=== PATIENT | male | born 1945 | race Caucasian/White ===

== ENCOUNTER 2017-07-27 09:10 | Inpatient (IN) | payer MEDICARE, OTHER, SELFPAY ==
[2017-07-13 09:29] VITALS: BP 142/90; PULSE 68; RESP 16; TEMP 36.3; O2SAT 98; BMI 26.5
[2017-07-13 10:10] LABS: Absolute Lymphocyte Count 1.61 X10^3/ul (0.83-4.51); Absolute Neutrophil Count 4.8 X10^3/uL (2.0-7.7); Basophil# 0.04 X10^3/uL; Basophil% 0.5 % (0-1); Eosinophil# 0.48 X10^3/uL; Eosinophils% 6.3 % (0-5); Hematocrit 48.8 % (40-54); Hemoglobin 16.5 g/dl (13.0-16.5); Lymphocyte # 1.61 X10^3/ul (4.0); Lymphocyte % 21.1 % (19-41); Mean Corp Hgb Conc 33.8 g/gl (32-36); Mean Corpuscular Hgb 29.8 pg (27.0-32.0); Mean Corpuscular Volume 88.2 fL (80-94); Mean Platelet Vol. 9.6 fl (6.2-12.0); Monocyte# 0.63 X10^3/uL; Monocyte% 8.3 % (0-10); Neutrophil # 4.84 X10^3/uL (2.7-7.7); Neutrophil % 63.5 % (47-70); Platelet Count 255 K/mm3 (150-450); RBC Distribution Width CV 12.8 % (11.6-14.6); RBC Distribution Width SD 41.4 fl (35.1-43.9); Red Blood Count 5.53 M/mm3 (4.6-6.2); White Blood Count 7.6 K/mm3 (4.4-11.0)
[2017-07-13 10:12] LABS: POSITIVE COUNT NO; POSITIVE DIFFERENTIAL NO; POSITIVE MORPHOLOGY NO
[2017-07-13 10:52] LABS: Anion Gap 8 (5-15); BUN 16 mg/dL (7-18); BUN/Creat Ratio 17.4 RATIO (10-20); Calcium,Total 9.1 mg/dL (8.5-10.1); Chloride 103 mmol/L (98-107); Creatinine, Serum 0.92 mg/dL (0.70-1.30); EST Glomerular Filtration Rate 85 mL/min (>60); Est Glom Filt Rate - Afr Amer 103 mL/min (>60); Estimated Creatinine Clearance 73.84 ml/min; Glucose 88 mg/dL (74-106); Potassium 4.3 mmol/L (3.5-5.1); Sodium Level 139 mmol/L (136-145)
--- NOTE | 2017-07-14 13:59 | PCM.HP.BLA ---
History and Physical DATE OF SERVICE: 07/27/2017 SCHEDULED PROCEDURE: Left total knee arthroplasty HISTORY OF PRESENT ILLNESS: This is a 71-year-old male who is been having ongoing pain in bilateral knees for several years. The left knee is greater than the right. Patient states he has been having pain since . Pain is aching and sore. Pain can reach as high as a 4-5 out of 10. Pain is increased with going up and down stairs, prolonged walking, and sitting for extended periods of time. Patient does have start up pain. Pain is primarily located over the medial aspect of the left knee. Patient has difficult time with leisure activities such as golf due to the pain. He has tripped and stumbled secondary to his bilateral knee pain. Patient has tried conservative treatment measures consisting of oral medications including ibuprofen and supplements. He has tried bracing with no relief in symptoms. Patient has tried ice and heat with no relief in symptoms. X-rays have revealed severe osteoarthritis with varus deformity on the left knee. After failing conservative treatment measures and discussing all treatment options with Dr. Scott, the patient would like to proceed with a left total knee arthroplasty. He currently denies any chest pain, shortness of breath, fevers chills, or recent infections. Patient does have medical history pertinent for history of gout and previous bladder cancer that is in remission he does have some underlying prostate problems he has been dealing with his primary care physician. REVIEW OF SYSTEMS: ROS: Const: Reports hard of hearingDenies change in appetite, fever,or weight change. CV: Denies chest pain, heart murmur and irregular heartbeat. Resp: Denies cough, pneumonia, SOB, tuberculosis and wheezing. GI: Denies constipation, diarrhea, difficulty swallowing, heartburn, nausea, bloody stools and vomiting. : . (F Genital Sx) Urinary: denies incontinence. Musculo: Reports limp, but denies leg swelling, trouble walking and weakness. Skin: Denies Raynaud's, history of shingles and tattoo. Neuro: Denies ambulatory dysfunction, dizziness, numbness/tingling and tremor. Psych: Denies anxiety, insomnia and stress. Red/Lymph: Denies anemia, bleeding/bruising tendency and past transfusion. Reviewed, no changes. PAST MEDICAL HISTORY: Advance Care Plan: Other Directive, LIVING WILL Effective Date: 03/14/2017 Other Directive, POA Effective Date: 03/14/2017 PMH: Medical Problems: Cancer, Gout Accidents: None Surgical Hx: Bladder - (2017) Anesthesia Complications: None Assistive Devices: Hearing Aid Reviewed, no changes. SOCIAL HISTORY: SH: Marital: .Occupation: Retired.Work Status: Retired.Hand Dominance: Right-handed. Personal Habits: Cigarette Use: Former.Alcohol: Weekly use.Drug Use: Denies Use.Enjoy Exercising: Never Exercises. Reviewed, no changes. VITALS: Ht: 70 Wt: 180lb Wt k.648 BMI: 25.8 BP: 112/88 Pulse: 60 Resp: 16 T: 97.2 T: 36.2C ALLERGIES: No Known Drug Allergy MEDICATIONS: Pravastatin Sodium 20 mg daily, GNC Tri Flex 1po qday, Honey & Raw Vinger 2 tablespoons in alexander, Hutson Juice 1 drink daily PRE-OP EXAM: General appearance:NORMAL Other: Eyes: Conjunctivae and lids: NORMAL Pupils: ERR Ears, Nose, Mouth, and Throat: NORMAL Other: Inspection of lips, teeth and gums: NORMAL Other: Neck: Examination of neck: no masses noted. Respiratory: Assessment of respiratory effort: NORMAL Other: Ausculation of lungs: clear to ausculation no wheeses, ronchi or rales. Cardiovascular: Ausculation of heart: regular rate and rhythem, no mummurs, gallops or rubs. Exam of carotid arteries: NORMAL Other: Gastrointestinal: Exam of abdomen: soft, nontender, nondistended bowel sounds present. Lymphatic: Palpation of nodes in neck: NORMAL Other: Palpation of nodes in Axillae: NORMAL Other: Neurological: see below Psychiatric: Orientation to time, place and person: NORMAL Other: Mood and affect: NORMAL Other: PHYSICAL EXAMINATION: Patient walks with an antalgic gait. No significant effusion to the left knee. Range of motion is 0? of extension 215? of flexion with crepitus appreciated. Patient does have a varus deformity. Patient is stable to varus and valgus stress test. Sensations intact light touch. IMAGING STUDIES: 1. X-rays were obtained at [facility] on March 17, 2017 including bilateral knees which reveal varus alignment and medial joint space narrowing with subchondral sclerosis and osteophyte formation consistent with severe left and moderate right knee osteoarthritis. IMPRESSION: 1. Severe left knee osteoarthritis 2. Moderate right knee osteoarthritis 3. History of gout 4. History of bladder cancer in remission 5. Prostate PLAN: Dr. Scott did discuss and review with the patient all treatment options including surgical versus nonsurgical. Patient wishes to proceed with above-stated procedure. Potential risks, benefits, and complications of this procedure were discussed in detail including but not limited to , infection, nerve and blood vessel damage, persistent pain, numbness, tingling, paresthesias, blood clot, pulmonary embolism, and requirement for further surgery. The patient expressed full understanding has no further questions for the doctor. Patient does agree to proceed with the above-stated procedure and has signed the surgery consent form. We will undergo preoperative lab work and EKG. ___ I have re-examined the patient. There are no clinical changes since date of exam. ___ See progress notes for changes. ___ Dictated on admission Date: Time: Signature:
[2017-07-27] VITALS (11 sets, daily range): BP systolic 109–159; BP diastolic 72–92; PULSE 72–103; RESP 16–18; TEMP 36.1–36.5; O2SAT 93–99; BMI 26.5
[2017-07-27] MEDS: Acetaminophen 500 MG Tablet 1000 MG PO ×3 (06:34→21:40)
[2017-07-27] MEDS: Celecoxib 200 MG Capsule 400 MG PO (06:34)
[2017-07-27] MEDS: oxyCODONE HCl Cr 10 MG Tablet PO (06:34)
--- NOTE | 2017-07-27 07:01 | RAD_ITS ---
STUDY: X-RAY - LEFT KNEE REASON FOR EXAM: Male, 71 years old. Total knee replacement. TECHNIQUE: AP and lateral view(s) of the knee. COMPARISON: None. FINDINGS: Normal visualized distal femur. Normal visualized proximal tibia and fibula. Normal proximal tibiofibular articulation. The patient is status post total knee replacement. There is good alignment. Postoperative soft tissue changes. RAD/Knee 1 or 2 Views IMPRESSION: Status post total knee replacement. There is good alignment. Postoperative soft tissue changes. Electronically Signed: Carlos Alexandra MD at 11:18 EST Tel [phone], Service support ,
[2017-07-27] MEDS: Cefazolin 2 GM in 0.9% Normal Saline 100 ML IV (07:37)
[2017-07-27] MEDS: Lactated Ringers 1,000 ML 999 ML IV (07:45)
[2017-07-27] MEDS: Triamcinolone Acetonide 40 MG/ML Vial (07:46)
[2017-07-27] MEDS: Scopolamine 1mg/72hr Patch 1 PATCH TD (10:12)
[2017-07-27] MEDS: Lactated Ringers 1,000 ML 125 ML IV ×2 (11:10→19:23)
--- NOTE | 2017-07-27 11:22 | PCM.OPRPT ---
Report of Operation Date of Procedure: 07/27/17 Pre-Operative Diagnosis: Left knee primary osteoarthritis Post-Operative Diagnosis: Left knee primary osteoarthritis Surgery/Procedure Performed:: Left total knee replacement Description of Surgical Findings:: Stable knee with good patella tracking welt slasher: Radha Matthews Type of Anesthesia:: Spinal Anesthesiologist: Blane Osullivan Special Medications: 2 g Ancef, 1 g TXA at incision, 1 g TXA closure, 10 mg Decadron, joint cocktail (5 mg Duramorph, 30 mL of 0.5% Ropivicaine, 1000 units of epinephrine, 30 mg of Toradol) Specimen's removed: Bony cuts Estimated Blood Loss (mL): 25 Fluids Replaced: 1200 mL crystalloid Description of Procedure: Implants used: 1. [place]aire size 7 triathlon posterior stabilized distal femoral component 2. [place] size 7 universal tibial baseplate 3. [place] X3 9 mm CS polyethylene 4. [place] X3 38 mm asymmetric patella Brief history operative indications: 71-year-old m with history of left knee osteoarthritis with radiographic findings with loss of joint space, osteophyte formation and subchondral sclerosis. Failed conservative measures as mentioned in the H&P. Discussion of total knee arthroplasty as well as risk and benefits were discussed the patient including but not limited to blood loss, DVTs, PEs, neurovascular damage, general risk of anesthesia including loss of life, and stiffness or instability were discussed with patient. Patient demonstrated understanding and was able to sign informed consent. Procedure: On the date of procedure patient's left lower extremity was marked in the preoperative area. The patient was then taken back to the operating room where the patient was placed on the table in the supine position. All bony prominences were identified a well-padded. Anesthesia assumed control of the C-spine and airway and remained controlled throughout the remainder of the procedure. A tourniquet was placed on the left upper thigh and the leg was prepped in a sterile fashion. The surgeon then scrubbed at this time .Upon reentering the room left lower extremity was draped in a standard orthopedic fashion. A timeout was then called and everyone agreed upon the side, the site, the procedure to be performed, patient's identity and antibiotics given. Esmarch bandage was used to exsanguinate the extremity and the tourniquet was placed up to 250 mmHg with the knee in flexion. A midline skin incision was made and sharp dissection was taken down through skin subcutaneous tissue and fat. The standard medial parapatellar incision was made and the patella was subluxed laterally. The standard deep MCL release was done and the fat pad was resected. Next our attention was directed to the femur. Navigation pins were placed, navigation was registered. The distal femoral cutting block was pinned into place and 9 mm of distal femur resection was completed. The distal femoral cut was verified with navigation. The knee was then placed in deep flexion in the standard Ideapod sizing guide was used to place the femoral component in 3? external rotation based on the posterior condyles. A size 7 4-in-1 cutting block was selected and pinned into place. The anterior cut was then made and checked for notching. The subsequent anterior chamfer cuts, posterior condylar cuts and posterior chamfer cuts were made while ensuring the MCL and LCL were protected. Our attention was then turned to the tibia where the navigation pins were placed, navigation was registered. Cloopen tibial cutting guide was used to make the appropriate tibial cut 90 degrees from the mechanical axis. Navigation was then used to verify the cut. A size 7 tibial base plate was selected. the knee was flexed to 90 degrees and the soft tissues and posterior osteophytes were removed from the joint. 40 cc of the periarticular injection was injected into the posterior medial corner of the joint. Box cutting guide was put into place in the femoral box cut was made. The appropriate trials were then placed on the femur and tibia. A trial polyethylene was trialed to ensure proper balancing and stability of the knee. Patella tracking, was then verified and corrected appropriately as needed. The appropriate tibial internal rotation was then marked with a bovie. Our attention was then directed to the patella. The patella was everted and a flat resection was made. The lug holes were drilled and the patella trial was placed. Patellar tracking was checked and deemed appropriate. Once we were happy lug holes were drilled for the femur and trial components were removed. the tibia was subluxed and pinned into place and the keel was punched and the canal was reamed. Final components were verified and opened, and cement was mixed in a vacuum. [place] Simplex cement was used. The wound was copiously irrigated with normal saline. When the cement was ready the components were cemented into place starting with the tibia, femur and finally the patella. The trial poly component was placed and the knee was placed in full extension. All excess cement was removed in the process. Once the cement had cured the tracking, alignment and balance were verified and a size 9 mm polyethylene component was placed. Once the final components were placed the wound was copiously irrigated with normal saline solution and the periarticular injection was given. The wound was closed in a layer medrano fashion using #1 vicryl interrupted sutures for the arthrotomy, 2-0 interrupted Vicryl suture for the subcuticular layer and mac for final skin closure. A sterile compressive dressing was then placed. The patient was then awakened from anesthesia, transferred to the [place] and transferred to the PACU for recovery. Post op plan DVT ppx: ASA 325mg, thigh high compression stockings Follow up: in office in 2 weeks for wound check PT: to start POD #0 at hospital, outpatient PT should be arranged. Grafts/Implants Used: [place] triathlon total knee - Complications None - Admit VTE Documentation VTE Present on Admission: No VTE Mechan Device Prophylaxis: SCD's VTE Pharm Prophylaxis ordered?: Yes
--- NOTE | 2017-07-27 11:25 | OP.PCM_ITS ---
Report of Operation Date of Procedure: 07/27/17 Pre-Operative Diagnosis: Left knee primary osteoarthritis Post-Operative Diagnosis: Left knee primary osteoarthritis Surgery/Procedure Performed:: Left total knee replacement Description of Surgical Findings:: Stable knee with good patella tracking gas cutting machine operator: Radha Matthews Type of Anesthesia:: Spinal Anesthesiologist: Blane Osullivan Special Medications: 2 g Ancef, 1 g TXA at incision, 1 g TXA closure, 10 mg Decadron, joint cocktail (5 mg Duramorph, 30 mL of 0.5% Ropivicaine, 1000 units of epinephrine, 30 mg of Toradol) Specimen's removed: Bony cuts Estimated Blood Loss (mL): 25 Fluids Replaced: 1200 mL crystalloid Description of Procedure: Implants used: 1. Zaire size 7 triathlon posterior stabilized distal femoral component 2. [place]aire size 7 universal tibial baseplate 3. [place] X3 9 mm CS polyethylene 4. [place] X3 38 mm asymmetric patella Brief history operative indications: 71-year-old m with history of left knee osteoarthritis with radiographic findings with loss of joint space, osteophyte formation and subchondral sclerosis. Failed conservative measures as mentioned in the H&P. Discussion of total knee arthroplasty as well as risk and benefits were discussed the patient including but not limited to blood loss, DVTs, PEs, neurovascular damage , general risk of anesthesia including loss of life, and stiffness or instability were discussed with patient. Patient demonstrated understanding and was able to sign informed consent. Procedure: On the date of procedure patient's left lower extremity was marked in the preoperative area. The patient was then taken back to the operating room where the patient was placed on the table in the supine position. All bony prominences were identified a well-padded. Anesthesia assumed control of the C- spine and airway and remained controlled throughout the remainder of the procedure. A tourniquet was placed on the left upper thigh and the leg was prepped in a sterile fashion. The surgeon then scrubbed at this time .Upon reentering the room left lower extremity was draped in a standard orthopedic fashion. A timeout was then called and everyone agreed upon the side, the site, the procedure to be performed, patient's identity and antibiotics given. Esmarch bandage was used to exsanguinate the extremity and the tourniquet was placed up to 250 mmHg with the knee in flexion. A midline skin incision was made and sharp dissection was taken down through skin subcutaneous tissue and fat. The standard medial parapatellar incision was made and the patella was subluxed laterally. The standard deep MCL release was done and the fat pad was resected. Next our attention was directed to the femur. Navigation pins were placed, navigation was registered. The distal femoral cutting block was pinned into place and 9 mm of distal femur resection was completed. The distal femoral cut was verified with navigation. The knee was then placed in deep flexion in the standard AlterPoint sizing guide was used to place the femoral component in 3? external rotation based on the posterior condyles. A size 7 4-in-1 cutting block was selected and pinned into place. The anterior cut was then made and checked for notching. The subsequent anterior chamfer cuts, posterior condylar cuts and posterior chamfer cuts were made while ensuring the MCL and LCL were protected. Our attention was then turned to the tibia where the navigation pins were placed , navigation was registered. BTC.sx tibial cutting guide was used to make the appropriate tibial cut 90 degrees from the mechanical axis. Navigation was then used to verify the cut. A size 7 tibial base plate was selected. the knee was flexed to 90 degrees and the soft tissues and posterior osteophytes were removed from the joint. 40 cc of the periarticular injection was injected into the posterior medial corner of the joint. Box cutting guide was put into place in the femoral box cut was made. The appropriate trials were then placed on the femur and tibia. A trial polyethylene was trialed to ensure proper balancing and stability of the knee. Patella tracking, was then verified and corrected appropriately as needed. The appropriate tibial internal rotation was then marked with a bovie. Our attention was then directed to the patella. The patella was everted and a flat resection was made. The lug holes were drilled and the patella trial was placed. Patellar tracking was checked and deemed appropriate. Once we were happy lug holes were drilled for the femur and trial components were removed. the tibia was subluxed and pinned into place and the keel was punched and the canal was reamed. Final components were verified and opened, and cement was mixed in a vacuum. [employer] Simplex cement was used. The wound was copiously irrigated with normal saline. When the cement was ready the components were cemented into place starting with the tibia, femur and finally the patella. The trial poly component was placed and the knee was placed in full extension. All excess cement was removed in the process. Once the cement had cured the tracking, alignment and balance were verified and a size 9 mm polyethylene component was placed. Once the final components were placed the wound was copiously irrigated with normal saline solution and the periarticular injection was given. The wound was closed in a layer medrano fashion using #1 vicryl interrupted sutures for the arthrotomy, 2-0 interrupted Vicryl suture for the subcuticular layer and mac for final skin closure. A sterile compressive dressing was then placed. The patient was then awakened from anesthesia, transferred to the [place] and transferred to the PACU for recovery. Post op plan DVT ppx: ASA 325mg, thigh high compression stockings Follow up: in office in 2 weeks for wound check PT: to start POD #0 at hospital, outpatient PT should be arranged. Grafts/Implants Used: [employer] triathlon total knee - Complications None - Admit VTE Documentation VTE Present on Admission: No VTE Mechan Device Prophylaxis: SCD's VTE Pharm Prophylaxis ordered?: Yes
[2017-07-27] MEDS: Senna/Docusate Sodium 1 Tablet 2 TABLET PO ×2 (12:44→21:41)
[2017-07-27] MEDS: Famotidine 20 MG Tablet PO (12:44)
[2017-07-27] MEDS: Cefazolin 1 GM/50 ML BAG IV ×2 (15:53→23:14)
[2017-07-27] MEDS: Aspirin 325 MG Tablet PO (17:25)
[2017-07-27] MEDS: Pravastatin 20 MG Tablet PO (21:41)
[2017-07-28 03:30] VITALS: BP 108/67; PULSE 88; RESP 18; TEMP 36.8; O2SAT 95
[2017-07-28 03:40] VITALS: PULSE 88
[2017-07-28 06:08] LABS: Hematocrit 41.3 % (40-54); Hemoglobin 13.6 g/dl (13.0-16.5); Mean Corp Hgb Conc 32.9 g/gl (32-36); Mean Corpuscular Hgb 29.1 pg (27.0-32.0); Mean Corpuscular Volume 88.4 fL (80-94); Mean Platelet Vol. 9.7 fl (6.2-12.0); Platelet Count 242 K/mm3 (150-450); RBC Distribution Width CV 12.7 % (11.6-14.6); RBC Distribution Width SD 40.8 fl (35.1-43.9); Red Blood Count 4.67 M/mm3 (4.6-6.2); White Blood Count 20.7 K/mm3 (4.4-11.0)
[2017-07-28] MEDS: 0.9% NaCl Peripheral Flush Adult/Peds IV (06:16)
[2017-07-28] MEDS: Acetaminophen 500 MG Tablet 1000 MG PO (06:16)
[2017-07-28 06:25] LABS: Scan Indicated on CBC? Y/N NO
[2017-07-28 06:31] LABS: BUN 15 mg/dL (7-18); Creatinine, Serum 0.99 mg/dL (0.70-1.30); Estimated Creatinine Clearance 68.62 ml/min; Glucose 103 mg/dL (74-106)
[2017-07-28 06:32] LABS: Anion Gap 10 (5-15); BUN/Creat Ratio 15.1 RATIO (10-20); Calcium,Total 8.2 mg/dL (8.5-10.1); Chloride 110 mmol/L (98-107); EST Glomerular Filtration Rate 78 mL/min (>60); Est Glom Filt Rate - Afr Amer 95 mL/min (>60); Potassium 4.5 mmol/L (3.5-5.1); Sodium Level 142 mmol/L (136-145)
[2017-07-28] MEDS: Aspirin 325 MG Tablet PO (09:21)
[2017-07-28] MEDS: Senna/Docusate Sodium 1 Tablet 2 TABLET PO (09:21)
[2017-07-28] MEDS: Famotidine 20 MG Tablet PO (09:22)
[2017-07-28 09:30] VITALS: BP 128/76; PULSE 79; RESP 18; TEMP 36.6; O2SAT 98
--- NOTE | 2017-07-28 10:10 | PCM.PN.ORT ---
Subjective: The patient was sitting in bed upon examination. Patient denies any chest pain, shortness of breath, dizziness, lightheadedness, nausea or vomiting, or calf pain. Pain is controlled on medications. No adverse overnight events. Patient states he is doing very well. Has tolerated therapy. Plan is for discharge home today if patients pain is well controlled. Objective: Vital signs stable and afebrile. Patient is able to plantarflex and dorsiflex actively. Sensation is intact to light touch to saphenous, sural, superficial and deep peroneal, and tibial distribution. Dressing is clean dry and intact. Distal incision with minimal drainage Negative Homans bilaterally, negative signs and symptoms of DVT. - Physical Exam General: Alert, Oriented x3, Cooperative, No apparent distress Vital Signs Temp Pulse Resp BP Pulse Ox 98.3 F 88 18 108/67 95 07/28/17 03:30 07/28/17 03:40 07/28/17 03:30 07/28/17 03:30 07/28/17 03:30 Oxygen Delivery Method Room Air Weight: 83.9 kg Body Mass Index (BMI) 26.5 Intake and Output for Last 24 Hours 07/26/17 07/27/17 07/28/17 23:59 23:59 23:59 Intake Total 5279 / 5279 493 / 493 Output Total 1475 / 1475 625 / 625 Balance 3804 / 3804 -132 / -132 Laboratory Tests Past 24 Hrs 07/28/17 07/28/17 05:26 05:26 WBC 20.7 H RBC 4.67 Hgb 13.6 Hct 41.3 MCV 88.4 MCH 29.1 MCHC 32.9 RDW 12.7 RDW Differential 40.8 Plt Count 242 MPV 9.7 Sodium 142 Potassium 4.5 Chloride 110 H Carbon Dioxide 22.0 Anion Gap 10 BUN 15 Creatinine 0.99 Estim Creat Clear Calc 68.62 Est GFR (MDRD) Af Amer 95 Est GFR (MDRD) Non-Af 78 BUN/Creatinine Ratio 15.1 Glucose 103 Calcium 8.2 L Assessment/Plan 1. S/P left total knee arthroplasty POD #1 2. Continue Pain Medications: Tylenol and OxyIR 3. DVT Prophylaxis: Aspirin 325 mg twice daily 4. PT/OT: Bearing as tolerated 5. H & H: 13.6/41.3, asymptomatic 6. Leukocytosis: Currently 20.7, afebrile. Patient did receive Decadron intraoperatively. No history of diabetes. 7. Encouraged Incentive Spirometry 8. Disposition: Plan will be for possible discharge home today if patient's pain is well controlled and tolerates physical therapy. Prescriptions will be E scribed to [facility]. Patient will follow-up per postop instructions. Prescription for a walker was signed and given to case management.
--- NOTE | 2017-07-28 10:16 | PCM.DC.TKR ---
Discharge Diet: No Restrictions Discharge Activity: May Not Drive May shower in (days): 2 Ice area for (Minutes): 20 - every hour while awake. Weight Bearing Status: Weight bearing as tolerated Elevate: Operative Extremity Additional Activity Instructions:: Wear elastic stockings for 2 weeks after your surgery. Call your doctor if your incision/area has: Continuous Slow Oozing, Sudden Increased Bleeding, Increased Pain/ Swelling, Increased Redness, Foul Smelling Discharge Call your doctor if you observe: Fever of 101 or Higher, Coldness, Increased Pain, Numbness or Tingling, Change in Color, Calf discomfort, Uncontrolled pain Remove Dressing in (days):: 4 - Okay to remove dressing on August 01, 2017 Additional Instructions: Follow [facility] postop instructions Allergies/Adverse Reactions: Allergies No Known Allergies Allergy (Verified 07/13/17 09:18) Medications to take at Discharge Pravastatin [Pravachol] 20 mg PO QHS 01/19/16 Tri Flex 2 tab PO DAILY 07/13/17 Acetaminophen [Tylenol] 1,000 mg PO Q8 #90 tab 07/28/17 Aspirin 325 mg PO BIDCM #30 tab 07/28/17 Famotidine [Pepcid] 20 mg PO DAILY #30 tab 07/28/17 Oxycodone [Oxyir] 5 - 10 mg PO Q4H PRN PRN 7 Days #80 tablet 07/28/17 The following prescriptions were given: Oxycodone [Oxyir] 5 - 10 mg PO Q4H PRN PRN 7 Days #80 tablet PRN Reason: Mod-Severe Pain (4-10/10) Acetaminophen [Tylenol] 1,000 mg PO Q8 #90 tab Famotidine [Pepcid] 20 mg PO DAILY #30 tab Aspirin 325 mg PO BIDCM #30 tab Primary Care Physician: Kole Beltrán MD [Primary Care Provider] - Please Follow Up With: Physical therapy When: 08/01/17 @ 9:00 am Please Follow Up With: Juanjose Mart PA-C When: 08/10/17 @ 9:45 am
--- NOTE | 2017-07-28 11:06 | CASEMGMT ---
JN CARVER Face to Face with patient for initial transition planning/care coordination assessment. JN CARVER introduced self and role at [facility]. Patient lying in bed, alert and oriented. Patient willing to participate in assessment and is able to answer all questions appropriately. Care providers, pharmacy, and demographics verified. See link attached. Patient wishes to discharge home and is setup with [facility] for outpatient therapy. Patient states his will be providing transportation. Patient states he has no further needs or concerns at this time. CM to follow for discharge planning needs that may arise. Disposition Plan: Patient to discharge home with outpatient therapy, family support, and follow-up plans in place.
--- NOTE | 2017-07-28 11:30 | CASEMGMT ---
Patient stated that he would need and front wheeled walker. JN CARVER obtained script for FWW. Patient is agreeable to [facility] [employer]. JN CARVER faxed referral to [facility] and requested FWW be delivered to hospital. JN CARVER will continue to follow this patient and plan for a safe discharge.
[2017-07-28] MEDS: oxyCODONE 5 MG Tablet PO (11:43)
[2017-07-28 14:00] VITALS: BP 130/74; PULSE 72; RESP 18; TEMP 36.7; O2SAT 97
== END 2017-07-28 14:00 | disposition home or self-care (01) | DRG 470 ==
LOC: MS3 13:50 → ACINP 08-01 07:52 → MS3 08-01 07:57
PROVIDERS: Admitting Provider Specialist; Family Provider Family Medicine; PCP Family Medicine; Visit Provider Specialist
PROC: 0SRD0J9 Replacement of Left Knee Joint with Synthetic Substitute, Cemented, Open Approach (ICD-10-PCS; CPT 27447; principal; 2017-07-27 07:15)
DX: M17.12 Unilateral primary osteoarthritis, left knee (principal); M10.9 Gout, unspecified; Z85.51 Personal history of malignant neoplasm of bladder; Z23 Encounter for immunization; Z87.891 Personal history of nicotine dependence
CPT/HCPCS: 36415; 73560; 80048; 85025; 85027; 87081; 97110; 97116; 97162; 97166; 97530; 97535; 99251; J7120; 90686; A4216; G0463; J2405

== ENCOUNTER → 2018-04-24 16:34 | Outpatient (CLI) | payer MEDICARE, OTHER, SELFPAY ==
[2017-07-27 11:28] VITALS: BMI 26.5
--- NOTE | 2018-04-24 09:45 | CYSPIN_PTH ---
PATIENT: SUNIL ROMERO LOC: [facility] U#:[id number] AGE/SX: 79/M ROOM: RE04/24/[address]: Dr. Valerio Calderon MD : 1945 BED: DIS: SPEC #: [id number] RECD: 04/24/18 00:00 STATUS: SABRA WES #: [id number] ROSE: 04/24/18 09:[address]: Valerio Calderon DEPT: CYTOLOGY RECD BY: Bruce Kerr ENTERED: 04/25/18 08:21 SP TYPE: CYSPIN FL OTHR DR: Dr. Kole Beltrán MD Tissues: Urine Procedures: Pap Stain (control) Special Stain Group II Cytospin Fluid HEADER OPERATION: Not noted PRE-OP DIAGNOSIS: Bladder CA TISSUE SUBMITTED: Urine for cytology DIAGNOSIS CYTOLOGY Urine for cytology (cytospin): Atypical urothelial cells noted. SJ:danish 04/26/18 COMMENT Clinical correlation and appropriate follow up are necessary. 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 Case has been reviewed in consultation with Dr. Acosta who concurs with the above diagnosis. IDC:AM CYTOLOGY STUDY Slides are reviewed. CYTOLOGY GROSS Received is 10 ml of dark gold clear fluid labeled with the patient's name and and designated per the requisition as urine. Submitted for cytology preparation. 04/25/18 TC:5 CPT: 26295
[2018-04-24 16:42] LABS: Cytology, Body Fluid / CSF SEE PATHOLOGY REPORT
== END ==
PROVIDERS: Family Provider Family Medicine; PCP Family Medicine; Referring Provider Urology; Visit Provider Urology
DX: C67.9 Malignant neoplasm of bladder, unspecified (principal)
CPT/HCPCS: 88108; 88313

== ENCOUNTER → 2018-10-23 | Outpatient (CLI) | payer MEDICARE, OTHER, SELFPAY ==
[2018-10-23 11:25] LABS: AST(SGOT) 22 U/L (15-37); Alanine Aminotransfer ALT/SGPT 40 U/L (16-61); Albumin, Serum 3.8 g/dL (3.2-5.0); Alkaline Phosphatase 71 U/L (45-117); Anion Gap 9 (5-15); BUN 18 mg/dL (7-18); BUN/Creat Ratio 16.1 RATIO (10-20); Calcium,Total 8.7 mg/dL (8.5-10.1); Chloride 105 mmol/L (98-107); Cholesterol 171 mg/dL (200); Creatinine, Serum 1.12 mg/dL (0.70-1.30); EST Glomerular Filtration Rate 68 mL/min (>60); Est Glom Filt Rate - Afr Amer 82 mL/min (>60); Globulin 3.8 g/dL (2.2-4.2); Glucose 91 mg/dL (74-106); High Density Lipoprotein 46 mg/dL; PSA,Total- Diagnostic 4.09 ng/mL (0.0-4.0); Potassium 3.8 mmol/L (3.5-5.1); Protein, Total 7.6 g/dL (6.4-8.2); Sodium Level 141 mmol/L (136-145); Thyroid Stim Hormone (TSH) 2.74 uIU/mL (0.358-3.74); Triglycerides 196 mg/dL; Very Low Density Lipoprotein 39 mg/dL (5-40)
[2018-10-23 12:29] LABS: Absolute Lymphocyte Count 2.16 X10^3/ul (0.83-4.51); Absolute Neutrophil Count 5.2 X10^3/uL (2.0-7.7); Basophil# 0.01 X10^3/uL; Basophil% 0.1 % (0-1); Eosinophil# 0.28 X10^3/uL; Eosinophils% 3.2 % (0-5); Hematocrit 46.4 % (40-54); Hemoglobin 15.4 g/dl (13.0-16.5); Lymphocyte # 2.16 X10^3/ul (4.0); Lymphocyte % 24.5 % (19-41); Mean Corp Hgb Conc 33.2 g/gl (32-36); Mean Corpuscular Hgb 29.4 pg (27.0-32.0); Mean Corpuscular Volume 88.5 fL (80-94); Mean Platelet Vol. 9.7 fl (6.2-12.0); Monocyte# 1.08 X10^3/uL; Monocyte% 12.2 % (0-10); Neutrophil # 5.23 X10^3/uL (2.7-7.7); Neutrophil % 59.2 % (47-70); Platelet Count 296 K/mm3 (150-450); RBC Distribution Width CV 13.3 % (11.6-14.6); RBC Distribution Width SD 42.8 fl (35.1-43.9); Red Blood Count 5.24 M/mm3 (4.6-6.2); White Blood Count 8.8 K/mm3 (4.4-11.0)
[2018-10-23 12:46] LABS: POSITIVE COUNT NO; POSITIVE DIFFERENTIAL NO; POSITIVE MORPHOLOGY NO
== END | disposition home or self-care (01) ==
PROVIDERS: Family Provider Family Medicine; PCP Family Medicine; Referring Provider Urology; Visit Provider Urology
DX: E78.5 Hyperlipidemia, unspecified (principal); C61 Malignant neoplasm of prostate; C67.9 Malignant neoplasm of bladder, unspecified
CPT/HCPCS: 36415; 80053; 80061; 84153; 84443; 85025

== ENCOUNTER → 2018-12-07 | Outpatient (CLI) | payer MEDICARE, OTHER, SELFPAY ==
[2017-07-27 11:28] VITALS: BMI 26.5
== END | disposition home or self-care (01) ==
LOC: LAB.FUTURE 08:01
PROVIDERS: Family Provider Family Medicine; PCP Family Medicine; Visit Provider Family Medicine
DX: M10.9 Gout, unspecified (principal)
CPT/HCPCS: 36415; 84550

== ENCOUNTER → 2019-04-02 | Outpatient (CLI) | payer MEDICARE, OTHER, SELFPAY ==
[2019-04-02 10:52] VITALS: BMI 26.5
--- NOTE | 2019-04-02 10:58 | RAD_ITS ---
STUDY: X-RAY - RIGHT SHOULDER REASON FOR EXAM: Male, 73 years old. Pain TECHNIQUE: 4 view(s) of the shoulder. COMPARISON: None. FINDINGS: Narrowed glenohumeral articulation. Normal acromioclavicular joint. Normal acromion. Normal humeral head and visualized proximal humerus. The soft tissue structures are unremarkable. Normal visualized pulmonary apex. RAD/Shoulder min 2 Views IMPRESSION: Degenerative changes. No evidence for acute fracture or dislocation Electronically Signed: Kenny Pineda MD at 22:08 EST , Service support ,
== END | disposition home or self-care (01) ==
LOC: HPRAD 10:56
PROVIDERS: Family Provider Family Medicine; PCP Family Medicine; Referring Provider Orthopaedic Surgery; Visit Provider Orthopaedic Surgery
DX: M25.511 Pain in right shoulder (principal)
CPT/HCPCS: 73030

== ENCOUNTER → 2019-04-24 09:20 | Outpatient (CLI) | payer MEDICARE, OTHER, SELFPAY ==
[2019-04-02 10:52] VITALS: BMI 26.5
[2019-04-24 10:44] LABS: PSA,Total- Diagnostic 3.14 ng/mL (0.0-4.0)
== END ==
PROVIDERS: Family Provider Family Medicine; PCP Family Medicine; Referring Provider Urology; Visit Provider Urology
DX: R97.20 Elevated prostate specific antigen [PSA] (principal); C67.4 Malignant neoplasm of posterior wall of bladder; Z85.46 Personal history of malignant neoplasm of prostate
CPT/HCPCS: 36415; 84153

== ENCOUNTER → 2019-10-29 | Outpatient (CLI) | payer MEDICARE, OTHER, SELFPAY ==
[2019-10-02 13:27] VITALS: BMI 26.5
--- NOTE | 2019-10-29 | FLU_PTH ---
PATIENT: SUNIL ROMERO LOC: [facility] U#:[id number] AGE/SX: 74/M ROOM: RE10/29/[address]: Dr. Valerio Calderon MD : 1945 BED: DIS: 10/29/2019 SPEC #: [id number] RECD: 10/29/19 16:00 STATUS: SABRA WES #: [id number] ROSE: 10/29/19 00:[address]: Valerio Calderon DEPT: CYTOLOGY RECD BY: Tawny Gallardo ENTERED: 10/30/19 07:54 SP TYPE: Fluid OTHR DR: Dr. Kole Beltrán MD Tissues: Urine Procedures: Special Stain Group II Cytospin Fluid HEADER OPERATION: Not noted PRE-OP DIAGNOSIS: Malignant neoplasm of posterior wall of bladder TISSUE SUBMITTED: Urine for cytology DIAGNOSIS CYTOLOGY Urine for cytology (cytospin): Negative for malignant cells. See comment. AM:danish 10/30/19 COMMENT The specimen is paucicellular. Clinical correlation is necessary. CYTOLOGY STUDY Slides are reviewed. CYTOLOGY GROSS Received is 25 ml of yellow, cloudy fluid labeled with the patient's name and and designated per the requisition as urine. Submitted for cytology preparation. / danish 10/29/19 TC:5 CPT: 15835
[2019-10-29 17:23] LABS: Cytology, Body Fluid / CSF SEE PATHOLOGY REPORT
== END | disposition home or self-care (01) ==
LOC: LABSPEC 16:43
PROVIDERS: PCP Family Medicine; Referring Provider Urology; Visit Provider Urology
DX: C67.4 Malignant neoplasm of posterior wall of bladder (principal)
CPT/HCPCS: 88108; 88313

== ENCOUNTER → 2020-04-09 09:17 | Outpatient (CLI) | payer MEDICARE, OTHER, SELFPAY ==
[2019-10-02 13:27] VITALS: BMI 26.5
[2020-04-09 12:52] LABS: PSA,Total- Diagnostic 3.06 ng/mL (0.0-4.0)
== END ==
PROVIDERS: PCP Family Medicine; Referring Provider Urology; Visit Provider Urology
DX: C61 Malignant neoplasm of prostate (principal)
CPT/HCPCS: 36415; 84153

== ENCOUNTER → 2020-04-28 | Outpatient (CLI) | payer MEDICARE, OTHER, SELFPAY ==
[2019-10-02 13:27] VITALS: BMI 26.5
--- NOTE | 2020-04-28 09:20 | CYSPIN_PTH ---
PATIENT: SUNIL ROMERO LOC: [facility] U#:[id number] AGE/SX: 74/M ROOM: RE04/28/[address]: Dr. Valerio Calderon MD : 1945 BED: DIS: 04/28/2020 SPEC #: [id number] RECD: 04/29/20 08:21 STATUS: SABRA REErin #: [id number] ROSE: 04/28/20 09:[address]: Valerio Calderon DEPT: CYTOLOGY RECD BY: Kourtney Crowe ENTERED: 04/29/20 08:21 SP TYPE: CYSPIN FL OTHR DR: Dr. Kole Beltrán MD Tissues: Urine Procedures: Pap Stain (control) Special Stain Group II Cytospin Fluid HEADER OPERATION: Not noted PRE-OP DIAGNOSIS: Malignant neoplasm of bladder TISSUE SUBMITTED: Urine for cytology DIAGNOSIS CYTOLOGY Urine for cytology (cytospin): Negative for malignant cells. AM:danish 04/30/20 CYTOLOGY STUDY Slides are reviewed. CYTOLOGY GROSS Received is 15 ml of dark yellow cloudy fluid labeled with the patient's name and and designated per the requisition as urine. Submitted for cytology preparation. / danish 04/29/20 TC:5 CPT: 46219
[2020-04-28 17:22] LABS: Cytology, Body Fluid / CSF SEE PATHOLOGY REPORT
== END | disposition home or self-care (01) ==
LOC: LABSPEC 17:04
PROVIDERS: PCP Family Medicine; Referring Provider Urology; Visit Provider Urology
DX: C67.2 Malignant neoplasm of lateral wall of bladder (principal)
CPT/HCPCS: 88108; 88313

== ENCOUNTER → 2021-04-20 09:16 | Outpatient (CLI) | payer MEDICARE, OTHER, SELFPAY ==
[2021-04-20 10:51] LABS: PSA,Total- Diagnostic 2.51 ng/mL (0.0-4.0)
== END ==
PROVIDERS: PCP Family Medicine; Referring Provider Urology; Visit Provider Urology
DX: Z85.46 Personal history of malignant neoplasm of prostate (principal)
CPT/HCPCS: 36415; 84153

== ENCOUNTER → 2021-10-20 | Outpatient (CLI) | payer MEDICARE, OTHER, SELFPAY ==
[2021-10-20 12:42] LABS: PSA,Total - Annual Screen 3.09 ng/mL (0.00-4.00)
== END | disposition home or self-care (01) ==
LOC: MTLAB 09:23
PROVIDERS: PCP Family Medicine; Referring Provider Urology; Visit Provider Urology
DX: Z12.5 Encounter for screening for malignant neoplasm of prostate (principal); C61 Malignant neoplasm of prostate
CPT/HCPCS: 36415; 84153; G0103

== ENCOUNTER → 2022-04-26 | Outpatient (CLI) | payer MEDICARE, OTHER, SELFPAY ==
[2022-04-26 12:53] LABS: PSA,Total- Diagnostic 4.03 ng/mL (0.0-4.0)
== END | disposition home or self-care (01) ==
LOC: MTLAB 09:47
PROVIDERS: PCP Family Medicine; Referring Provider Urology; Visit Provider Urology
DX: C61 Malignant neoplasm of prostate (principal)
CPT/HCPCS: 36415; 84153

== ENCOUNTER → 2022-10-27 | Outpatient (CLI) | payer MEDICARE, OTHER, SELFPAY ==
[2022-10-27 17:54] LABS: PSA,Total- Diagnostic 3.11 ng/mL (0.0-4.0)
== END | disposition home or self-care (01) ==
LOC: MTLAB 14:43
PROVIDERS: PCP Family Medicine; Referring Provider Urology; Visit Provider Urology
DX: R97.20 Elevated prostate specific antigen [PSA] (principal)
CPT/HCPCS: 36415; 84153

== ENCOUNTER → 2023-04-29 | Outpatient (CLI) | payer MEDICARE, OTHER, SELFPAY ==
[2023-04-29 16:39] LABS: PSA,Total- Diagnostic 3.51 ng/mL (0.0-4.0)
== END | disposition home or self-care (01) ==
LOC: MTLAB 11:17
PROVIDERS: PCP Family Medicine; Referring Provider Urology; Visit Provider Urology
DX: C61 Malignant neoplasm of prostate (principal)
CPT/HCPCS: 36415; 84153

== ENCOUNTER 2023-05-11 13:00 | Outpatient (RCR) | payer MEDICARE, OTHER, SELFPAY ==
--- NOTE | 2023-04-06 14:24 | HP.PTEVAL_ITS ---
Patient's Visit Information Visit Information Visit Information: SUNIL ROMERO is a 77 year old M referred to Physical Therapy by GLORIA Lee with a diagnosis of . Date of Evaluation: 04/06/23 Physical Therapist: Gwyn Bowman, PT, Cert MDT, OCS Visit Plan Frequency: 2x /Week Duration: 4 Weeks Plan: PROXIMAL BICEP TEAR LONG HEAD PT INTERVTIONS RTC/SCAPULAR , POSTURAL EX'S AND ACTIVITY MODIFICATION Subjective Subjective: This 77 y/o male presents to physical therapy with left shoulder pain. Patient ~ 3weeks caused by working on toilet felt popped in bicep . Patient has seen ball possible tear . Patient seen DR recommended and did x-rays showed some OA. Patient not taking no medication. Patient initially had pain raising arm OH. Patient pain slowly getting better. Patient pain is mainly caused with supination pronation of bicep ,and some weakness and pain. Patient denies paresthesia/tingling -. Patient t is able to sleep . Patient return working out. Patient pain inheres with activity OH and using screw driving.. Patient condition affects QOL and function .Patient goals to have less pain. SOCAIL: VOCATION: retired Objective Objective: POSTURE: rounded shoulders head forward NEURO: denies paresthesia/tingling PALPATION: tender proximal long head OBSERVATION: visible lump proximal bicep, no ecchymosis AROM: shoulder flexion 150 degrees ,abduction 150 degrees ,ER 90 degrees , IR L1 MMT: RTC 4/5 ,supraspinatus 4-/5 ,(peak force) deltoid 12.8 Special Tests L Shoulder External Rotation Lag Test - RC Tear: Negative L Shoulder Drop Sign - IS Test: Negative L Shoulder Empty Can - SS: Negative L Shoulder Belly Press - SupScap: Negative L Shoulder Neer - Impingement: Positive L Shoulder Garcia Chris - Impingement: Positive L Shoulder Biceps Load Test - Labrum: Positive L Shoulder Speeds Test - Labrum/Biceps: Negative Balance/Special Test Scores Quick DASH Score: 43.1800 Goals Goal 1:: Patient to be I with HEP for shoulder Goal Time Frame: 4-6 Weeks Goal 2:: Patient to demonstrate 50% improvement with improve function and less pain. Goal Time Frame: 4-6 Weeks Goal 3:: Patient to improve shoulder oswestry score by 5 points to improve QOL and function Goal Time Frame: 4-6 Weeks Goal 4:: Patient to improve peak force deltoid by 5# to improve QOL and function Goal Time Frame: 4-6 Weeks Rehabilitation Potential Physical Therapy Diagnosis: This patient appears to tear long head proximal bicep with some and weakness with OH activities with+ Speed test and bicep load test thus benefit from skilled PT Rehabilitation Potential: Good Anticipated Interventions Patient/Client Instruction: Educate patient on: Condition and Plan of Care For the Purpose of:: To decrease swelling/inflammation, To increase ROM, To improve muscle performance and motor function, To improve ability to perform ADL's, To increase tolerance to activity/condition/position, To improve ability of physical actions for home/community/work/leisure, To improve health of tissue, To decrease soft tissue restriction and To increase flexibility/ROM Therapeutic Exercise to Include: Strength training, Postural training, Flexibilty training and Active ROM Comment: RTC For the Purpose of:: To decrease pain, To increase ROM, To improve muscle performance and motor function, To improve ability to perform ADL's, To increase tolerance to activity/condition/position, To improve ability of physical actions for home/community/work/leisure, To improve health of tissue, To decrease soft tissue restriction, To increase flexibility/ROM, To reduce risk of recurrence and To improve tolerance to ADL's TENS: Yes IF ES: Yes Cryotherapy (ice pack, ice massage): Yes Thermo therapy (hot pack): Yes Ultrasound (thermal/non thermal): Yes For the Purpose of:: To decrease pain, To increase ROM, To improve nutrient delivery to tissue, To increase oxygenation perfusion, To improve health of tissue and To decrease soft tissue restriction Text: Thank you for the opportunity to evaluate your patient. For Medicare and Medicare HMO plans, please review the plan of care and approve it. It will need to be FAXED BACK to us at [phone] for Medicare purposes. For Medicare only, by signing this I certify the plan of care. Please let me know if there are questions or concerns regarding this plan of care. Physician Signature: Date:
--- NOTE | 2023-05-11 13:30 | HP.PTDCSUM ---
Discharge Summary D/C summary: It has been my pleasure to treat SUNIL ROMERO referred by GLORIA Lee, with the diagnosis of for a total of 7 visit(s). Discharge Date: 05/11/23 Please see the following information for a summary of their discharge status. Subjective Subjective: Patient doing well Overall Improvement % Improvement: 90 Objective Objective/Function: POSTURE: rounded shoulders head forward NEURO: denies paresthesia/tingling PALPATION: tender proximal long head OBSERVATION: visible lump proximal bicep, no ecchymosis AROM: shoulder flexion 160 degrees ,abduction 160 degrees ,ER 90 degrees , IR L1 MMT: RTC 4/5 ,supraspinatus 44/5 ,(peak force) deltoid 24,7 Goals Goal 1:: Patient to be I with HEP for shoulder Goal 2:: Patient to demonstrate 50% improvement with improve function and less pain. Goal Progress: Goal Met Goal 3:: Patient to improve shoulder oswestry score by 5 points to improve QOL and function Goal Progress: Goal Met Goal 4:: Patient to improve peak force deltoid by 5# to improve QOL and function Goal Progress: Goal Met Plan Plan: D/C D/C Information Discharge Comments: HEP d/c sentence: If there are questions or concerns regarding this patient's physical therapy, please feel free to call me at [phone]. Thank you for the referral of this patient. Sincerely, Gwyn Bowman, PT, Cert MDT, OCS Balance/Gait/Functional tests Balance/Special Test Scores Quick DASH Score: 2.2725 Improvement % Improvement: 90
== END 2023-05-11 19:00 | disposition home or self-care (01) ==
LOC: PT 13:00
PROVIDERS: PCP Family Medicine; Visit Provider Nurse Practitioner
DX: S46.219A Strain of muscle, fascia and tendon of other parts of biceps, unspecified arm, initial encounter (principal); M25.512 Pain in left shoulder
CPT/HCPCS: 97110; 97162

== ENCOUNTER → 2023-11-02 | Outpatient (CLI) | payer MEDICARE, OTHER, SELFPAY ==
[2023-11-02 18:24] LABS: PSA,Total - Annual Screen 3.56 ng/mL (0.00-4.00)
== END | disposition home or self-care (01) ==
PROVIDERS: PCP Family Medicine; Referring Provider Urology; Visit Provider Urology
DX: C61 Malignant neoplasm of prostate (principal)
CPT/HCPCS: 36415; 84153; G0103

== ENCOUNTER → 2025-05-09 | Outpatient (CLI) | payer MEDICARE, OTHER, SELFPAY ==
--- OUTSIDE RECORDS SUMMARY | 2025-05-09 09:39 | XMS RPT_ITS | CCD ---
Author Organization [facility] ion Partnership [facility] Care Team Providers Care Structures Mechanic Name Role Phone Ludy Sorenson Attending Unavailable Ludy Sorenson Referring Unavailable Ludy Sorenson Consulting Unavailable Ludy Sorenson Unavailable Derek Sheldon Unavailable Unavailable Unavailable Unavailable Derek Grey Unavailable Unavailable Yas ARROYO Sanaz Unavailable Derek Sheldon LPN Unavailable Unavailable Unavailable Unavailable Allergies Allergy Classification Reported Allergen(s) Allergy Type Date of Onset Reaction(s) Facility Benzocaine (1 source) Benzocaine; Translations: [Anesthetic Maximum Strength *MOUTH/THROAT/DE NTAL AGENTS*] Drug Allergy [facility] Work Phone: (6 sources) Benzocaine; Translations: [Anesthetic Maximum Strength *MOUTH/THROAT/DE NTAL AGENTS*] Drug Allergy [facility] Work Phone: Medications Completed/Discontinued Medications Medication Drug Class(es) Dates Sig (Normalized) Sig (Original) allopurinol 100 mg oral tablet (6 sources) Xanthine Oxidase Inhibitor Allopurinol 100 MG Oral Tablet (100 MG) Active penicillin v potassium 500 mg oral tablet (6 sources) Start: 02-06-2020 take 4 tablets by mouth every hour Penicillin V Potassium 500 MG Oral Tablet 4 Tablet 1 hr prior to dental procedure for 0 days Quantity: 4 {Tablet} Refills: 2 Ordered: 06-Feb-2020 Ludy Sorenson CNP, CNP, Mary E Start : 06-Feb-2020 Active pravastatin sodium 20 mg oral tablet (7 sources) HMG-CoA Reductase Inhibitor Start: 02-06-2020 End: 03-07-2020 take 1 tablet by mouth once daily Pravastatin Sodium 20 MG Oral Tablet 1 (one) Tablet daily for 30 days Quantity: 30 {Tablet} Refills: 0 Ordered: 06-Feb-2020 Ludy Sorenson CNP, CNP, Mary E Start : 06-Feb-2020 End : 07-Mar-2020 Inactive Start: 08-30-2018 take 1 tablet by marjorie th once daily Pravastatin Sodium 20 MG Oral Tablet 1 (one) Tablet daily for 30 days Quantity: 30 {Tablet} Refills: 0 Ordered: 30-Aug-2018 Ludy Sorenson CNP, CNP, Mary E Start : 30-Aug-2018 Active Problems Active Problems Problem Classification Problem Date Documented Da te Episodic/Chronic Cancer of bladder (7 sources) Malignant tumor of urinary bladder; Translations: [Bladder cancer] 02-06-2020 Chronic Comment on above: seeing Kvng,gets s coped q 6 months. Cancer of prostate (20 sources) Primary malignant neoplasm of prostate; Translations: [Malignant tumor of prostate] 02-06-2020 Chronic Comment on above: follows with Kvng Deficiency and other anemia (6 sources) Deficiency and other anemia Disorders of lipid metabolism (7 sources) Hypercholesterolemia; Translations: [Hypercholesteremia] 02-06-2020 Chronic Gout and other crystal arthropathies (12 sources) Gout; Translations: [Gout] 02-06-2020 Chronic Immunizations and screening for infectious disease (8 sources) Need for prophylactic vaccination and inoculation against influenza; Translations: [Needs influenza immunization] 02-06-2020 Episodic Malaise and fatigue (10 sources) Fatigue; Translations: [Fatigue] 02-22-2020 Episodic Other connective tissue disease (6 sources) History of total knee arthroplasty; 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 Scott Other nutritional; endocrine; and metabolic disorders (9 sources) Body mass index 25-29 - overweight; Translations: [BMI 26.0-26.9,adult] 02-06-2020 Chronic Other nutritional; endocrine; and metabolic disorders (4 sources) Body mass index 25-29 - overweight; Translations: [BMI 26.0-26.9,adult] 02-06-2020 Episodic Other screening for suspected conditions (not mental disorders or infectious disease) (6 sources) Patient encounter status; Translations: [Encounter for screening for lipid disorder] 02-06-2020 Episodic Other skin disorders (7 sources) Change in skin lesion; Translations: [Changing skin lesion] 02-06-2020 Episodic Comment on above: rt groin,thick fatty pundulating flechy mass rt groin Residual codes; unclassified (4 sources) Needs influenza immunization; Translations: [Need for prophylactic vaccination and inoculation against influenza (Renamed from Need for immunization against influenza)] 02-06-2020 Episodic Residual codes; unclassified (7 sources) Contact with and (suspected) exposure to other hazardous, chiefly nonmedicinal, chemicals; Translations: [Agent orange exposure] 02-06-2020 Episodic Residual codes; unclassified (2 sources) Non-smoker; Translations: [Nonsmoker] 02-06-2020 Episodic Unclassified (6 sources) BMI 26.0-26.9,adult Unclassified (20 sources) Bladder Cancer 02-06-2020 Unclassified (18 sources) Nonsmoker; Translations: [Non-smoker] 02-06-2020 Unclassified (18 sources) Patient encounter status; Translations: [Encounter for screening for lipid disorder] 02-06-2020 Unclassified (20 sources) Unclassified (6 sources) Knee joint replacement status, left Unclassified (6 sources) Encounter for screening for other suspected endocrine disorder Past or Other Problems Problem Classification Problem Date Documented Da te Episodic/Chronic Unclassified (7 sources) Changing skin lesion Unclassified (7 sources) Agent orange exposure Unclassified (7 sources) BMI 27.0-27.9,adult Unclassified (12 sources) Hypercholesteremia Results Test Name Value Interpretation Reference Range Facility CBC & PLATELETS (AUTO) ([id number])Ordered By: Kettle Fry Cook Operator on 02-22-2020 Erythrocyte distribution width (RBC) [Ratio] 12.6 % Normal 11.6-15.4 [facility] Work Phone: Comment on above: 02-08-20; PATIENT WAS FASTINGPERFORMED BY: [employer] [facility] [id number] Hematocrit (Bld) [Volume fraction] 48.6 % Normal 37.5-51.0 [facility]; [facility] Work Phone: Comment on above: 02-08-20; PATIENT WAS FASTINGPERFORMED BY: CB [facility] [id number] [address]Dublin [place] [id number] Hemoglobin (Bld) [Mass/Vol] 16.7 g/dL Normal 13.0-17.7 [facility]; [facility] Work Phone: Comment on above: 02-08-20; PATIENT WAS FASTINGPERFORMED BY: CB [facility] Hnxing5425 [address]Dublin [place] [id number] MCH (RBC) [Entitic mass] 29.8 pg Normal 26.6-33.0 [facility]; [facility] Work Phone: Comment on above: 02-08-20; PATIENT WAS FASTINGPERFORMED BY: CB [facility] [id number]Dublin [place] [id number] MCHC (RBC) [Mass/Vol] 34.4 g/dL Normal 31.5-35.7 [facility]; [facility] Work Phone: Comment on above: 02-08-20; PATIENT WAS FASTINGPERFORMED BY: CB [facility] [id number] [address]Dublin [place] [id number] MCV (RBC) [Entitic vol] 87 fL Normal 79-97 [facility]; [facility] Work Phone: Comment on above: 02-08-20; PATIENT WAS FASTINGPERFORMED BY: CB [facility] Tuhkyk0033 [address]Dublin [place] [id number] Platelets (Bld) [#/Vol] 349 {x10E3/uL} Normal 150-450 [facility]; [facility] Work Phone: Comment on above: 02-08-20; PATIENT WAS FASTINGPERFORMED BY: CB [facility] Bzgxtw1152 [address]Dublin [place] [id number] Platelets (Bld) [#/Vol] 349 10*3/uL Normal 150-450 [facility]; [facility] Work Phone: Comment on above: 02-08-20; PATIENT WAS FASTINGPERFORMED BY: CB [facility] Rhwftd5195 [address]Dublin [place] [id number] RBC (Bld) [#/Vol] 5.60 {x10E6/uL} Normal 4.14-5.80 [facility] Work Phone: Comment on above: 02-08-20; PATIENT WAS FASTINGPERFORMED BY: CB [facility] Hxvdnr5838 [address]Dublin [place] [id number] RBC (Bld) [#/Vol] 5.60 10*6/uL Normal 4.14-5.80 [facility]; [facility] Work Phone: Comment on above: 02-08-20; PATIENT WAS FASTINGPERFORMED BY: CB [facility] Kedsqe5[address]Dublin [place] [id number] WBC (Bld) [#/Vol] 8.6 {x10E3/uL} Normal 3.4-10.8 [facility]; [facility] Work Phone: Comment on above: 02-08-20; PATIENT WAS FASTINGPERFORMED BY: CB [facility] Qjhyrl6048 [address]Dublin [place] [id number] WBC (Bld) [#/Vol] 8.6 10*3/uL Normal 3.4-10.[address] [facility]; [facility] Work Phone: Comment on above: 02-08-20; PATIENT WAS FASTINGPERFORMED BY: CB [facility] Jsztwa2363 [address]Dublin [place] [id number] LIPID PANEL ([id number])Ordered B y: Kettle Fry Cook Operator on 02-22-2020 Cholesterol [Mass/Vol] 174 mg/dL Normal 100-199 [facility]; [facility] Work Phone: Comment on above: 02-08-20; PATIENT WAS FASTINGPERFORMED BY: CB [facility] Zsbkdj2043 [address]Dublin [place] [id number] Cholesterol in HDL [Mass/Vol] 37 mg/dL Abnormal [facility]; [facility] Work Phone: Comment on above: 02-08-20; PATIENT WAS FASTINGPERFORMED BY: CB [facility] Rpsppr9038 [address]Dublin [place] [id number] Cholesterol in LDL/Cholesterol in HDL [Mass ratio] 3.1 {ratio} Normal 0.0-3.6 [facility]; [facility] Work Phone: Comment on above: LDL/HDL Ratio Men Wo men 1/2 Avg.Risk 1.0 1.5 Avg.Risk 3.6 3.2 2X Avg.Risk 6.2 5.0 3X Avg.Risk 8.0 6.1 02-08-20; PATIENT WAS FASTINGPERFORMED BY: CB [facility] Eushdd7024 [address]Dublin [place] [id number] Triglyceride [Mass/Vol] 118 mg/dL Normal 0-149 [facility]; [facility] Work Phone: Comment on above: 02-08-20; PATIENT WAS FASTINGPERFORMED BY: CB [facility] Zhgjmh9283 [address]Dublin [place] [id number] LIPID PANEL ([id number]) 21 mg/dL Normal 5-40 [facility]; [facility] Work Phone: Comment on above: 02-08-20; PATIENT WAS FASTINGPERFORMED BY: CB [facility] Ihtyvx9650 [address]Dublin [place] [id number] LIPID PANEL (20248) 116 mg/dL Abnormal 0-99 [facility]; [facility] Work Phone: Comment on above: 02-08-20; PATIENT WAS FASTINGPERFORMED BY: CB [facility] Fdeuwl2940 [address]Dublin [place] [id number] LIPID PANEL (75858) 3.1 {ratio} Normal 0.0-3.6 [facility]; [facility] Work Phone: Comment on above: LDL/HDL Ratio Men Wo men 1/2 Avg.Risk 1.0 1.5 Avg.Risk 3.6 3.2 2X Avg.Risk 6.2 5.0 3X Avg.Risk 8.0 6.1 02-08-20; PATIENT WAS FASTINGPERFORMED BY: CB [facility] [id number] [address]Dublin [place] [id number] Metabolic Panel, Comprehensi ve ([id number])Ordered By: Kettle Fry Cook Operator on 02-22-2020 Albumin [Mass/Vol] 4.9 g/dL Abnormal 3.7-4.7 [facility]; [facility] Work Phone: Comment on above: 02-08-20; PATIENT WAS FASTINGPERFORMED BY: FERN [facility] [id number] [address]Dublin [place] [id number] Albumin/Globulin [Mass ratio] 2.0 {ratio} Normal 1.2-2.2 [facility]; [facility] Work Phone: Comment on above: 02-08-20; PATIENT WAS FASTINGPERFORMED BY: CB [facility] Olptql4948 [address]Dublin [place] [id number] ALP [Catalytic activity/Vol] 92 [iU]/L Normal 39-117 [facility]; [facility] Work Phone: Comment on above: 02-08-20; PATIENT WAS FASTINGPERFORMED BY: CB [facility] Smuupt4501 [address]Dublin [place] [id number] ALP [Catalytic activity/Vol] 92 U/L Normal 39-117 [facility]; [facility] Work Phone: Comment on above: 02-08-20; PATIENT WAS FASTINGPERFORMED BY: CB [facility] Zdrzbs5308 [address]Dublin [place] [id number] ALT [Catalytic activity/Vol] 21 [iU]/L Normal 0-44 [facility]; [facility] Work Phone: Comment on above: 02-08-20; PATIENT WAS FASTINGPERFORMED BY: CB [facility] Zmwrpq0542 [address]Dublin [place] [id number] ALT [Catalytic activity/Vol] 21 U/L Normal 0-44 [facility]; [facility] Work Phone: Comment on above: 02-08-20; PATIENT WAS FASTINGPERFORMED BY: CB [facility] Kagndy9594 [address]Dublin [place] [id number] AST [Catalytic activity/Vol] 23 [iU]/L Normal 0-40 [facility]; [facility] Work Phone: Comment on above: 02-08-20; PATIENT WAS FASTINGPERFORMED BY: CB [facility] Yggoui1445 [address] RoadDublin [place] [id number] AST [Catalytic activity/Vol] 23 U/L Normal 0-40 [facility]; [facility] Work Phone: Comment on above: 02-08-20; PATIENT WAS FASTINGPERFORMED BY: CB [facility] Yxfvbi2367 [address]Dublin [place] [id number] Bilirubin [Mass/Vol] 0.7 mg/dL Normal 0.0-1.2 [facility]; [facility] Work Phone: Comment on above: 02-08-20; PATIENT WAS FASTINGPERFORMED BY: CB [facility] Hqakqj4152 [address]Dublin [place] [id number] Calcium [Mass/Vol] 9.6 mg/dL Normal 8.6-10.2 [facility]; [facility] Work Phone: Comment on above: 02-08-20; PATIENT WAS FASTINGPERFORMED BY: CB [facility] Ytavqc1489 [address]Dublin [place] [id number] Chloride [Moles/Vol] 106 mmol/L Normal 96-106 [facility]; [facility] Work Phone: Comment on above: 02-08-20; PATIENT WAS FASTINGPERFORMED BY: CB [facility] Atjati1323 [address] RoadDublin [place] [id number] CO2 [Moles/Vol] 16 mmol/L Abnormal 20-29 [facility]; [facility] Work Phone: Comment on above: 02-08-20; PATIENT WAS FASTINGPERFORMED BY: CB [facility] Svaofx2201 [address]Dublin [place] [id number] Creatinine [Mass/Vol] 1.08 mg/dL Normal 0.76-1.27 [facility]; [facility] Work Phone: Comment on above: 02-08-20; PATIENT WAS FASTINGPERFORMED BY: CB [facility] Nolbui1632 [address]Dublin [place] [id number] GFR/1.73 sq M predicted among blacks CKD-EPI (S/P/Bld) [Vol rate/Area] 77 mL/min/1.73 Normal [facility]; [facility] Work Phone: Comment on above: 02-08-20; PATIENT WAS FASTINGPERFORMED BY: CB [facility] Wxahns3257 [address]Dublin [place] [id number] GFR/1.73 sq M predicted among non-blacks CKD-EPI (S/P/Bld) [Vol rate/Area] 66 mL/min/1.73 Normal [facility]; [facility] Work Phone: Comment on above: 02-08-20; PATIENT WAS FASTINGPERFORMED BY: CB [facility] Vtugio4154 [address]Dublin [place] [id number] Globulin (S) [Mass/Vol] 2.5 g/dL Normal 1.5-4.5 [facility]; [facility] Work Phone: Comment on above: 02-08-20; PATIENT WAS FASTINGPERFORMED BY: CB [facility] Xbofso8426 [address] RoadDublin [place] [id number] Glucose [Mass/Vol] 95 mg/dL Normal 65-99 [facility]; [facility] Work Phone: Comment on above: 02-08-20; PATIENT WAS FASTINGPERFORMED BY: CB [facility] Gjwbvi8634 [address]Dublin [place] [id number] Potassium [Moles/Vol] 4.4 mmol/L Normal 3.5-5.2 [facility]; [facility] Work Phone: Comment on above: 02-08-20; PATIENT WAS FASTINGPERFORMED BY: CB [facility] Anxcsl4484 [address]Dublin [place] [id number] Protein [Mass/Vol] 7.4 g/dL Normal 6.0-8.5 [facility]; [facility] Work Phone: Comment on above: 02-08-20; PATIENT WAS FASTINGPERFORMED BY: CB [facility] Ufkfjt5585 [address]Dublin [place] [id number] Sodium [Moles/Vol] 141 mmol/L Normal 134-144 [facility]; [facility] Work Phone: Comment on above: 02-08-20; PATIENT WAS FASTINGPERFORMED BY: FERN [facility] Noycbo0[address] RoadFirsthealth [facility] Hospitalin [place] [id number] Urea nitrogen [Mass/Vol] 15 mg/dL Normal 8-27 [facility]; [facility] Work Phone: Comment on above: 02-08-20; PATIENT WAS FASTINGPERFORMED BY: CB [facility] Iuuasn6837 [address]blin [place] [id number] Urea nitrogen/Creatini ne [Mass ratio] 14 mg/mg Normal 10-24 [facility]; [facility] Work Phone: Comment on above: 02-08-20; PATIENT WAS FASTINGPERFORMED BY: FERN [facility] Wvphpq2584 [address] RoadFirsthealth Montgomery [facility] Hospitalin [place] [id number] TSH (THYROID STIMULATING HOR YOSI) ([id number])Ordered By: Kettle Fry Cook Operator on 02-22-2020 TSH Qn 3.330 {uIU/mL} Normal 0.450-4.500 Comprehen sive [facility]; [facility] Work Phone: Comment on above: 02-08-20; PATIENT WAS FASTINGPERFORMED BY: FERN [facility] Dkagbt6505 [address] [facility] Hospitalin [place] [id number] URIC ACID BLOOD ([id number])Order ed By: Kettle Fry Cook Operator on 02-22-2020 Urate [Mass/Vol] 6.9 mg/dL Normal 3.7-8.6 Comprehe nsive [facility]; [facility] Work Phone: Comment on above: Therapeutic target f or gout patients: <6.0 02-08-20; PATIENT WAS FASTINGPERFORMED BY: FERN [facility] Togizg[address] [facility] [id number] Vital Signs Date Time Vital Sign Value Performing Clinician Facility 02-06-2020 15:20-0400 BMI (Body Mass Index) 26.12 kg/m2 Derek Sheldon LPN [facility] Work Phone: 02-06-2020 15:20-0400 Body Temperature 97.8 [degF] Derek Sheldon LPN [facility] Work Phone: Comment on above: Method: Infrared 02-06-2020 15:20-0400 Body weight 82.56 kg Derek Sheldon LPN [facility] Work Phone: 02-06-2020 15:20-0400 BP Diastolic 90 mm[Hg] Derek Sheldon LPN [facility] Work Phone: Comment on above: Patient Position: Sitting; Cuff Location : Left Arm; Cuff Size: Standard 02-06-2020 15:20-0400 BP Systolic 122 mm[Hg] Derek Sheldon LPN [facility] Work Phone: Comment on above: Patient Position: Sitting; Cuff Location : Left Arm; Cuff Size: Standard 02-06-2020 15:20-0400 BSA (Body Surface Area) 2.01 m2 Derek Sheldon LPN [facility] Work Phone: 02-06-2020 15:20-0400 Height 177.8 cm Derek Sheldon LPN [facility] Work Phone: 02-06-2020 15:20-0400 Pulse (Heart Rate) 80 /min Derek Sheldon LPN [facility] Work Phone: Comment on above: Pattern: Regular 02-06-2020 15:20-0400 Pulse Oximetry 99 % Ludy Sorenson [facility] Work Phone: Comment on above: Room air 02-06-2020 15:20-0400 Respiratory Rate 16 /min Derek Sheldon LPN [facility] Work Phone: Comment on above: Pattern: Unlabored 02-06-2020 15:20-0400 SaO2% (BldA) [Mass fraction] 99 % Derek Sheldon LPN [facility]; [facility] Work Phone: Comment on above: Room air 08-30-2018 14:16-0400 BMI (Body Mass Index) 27.26 kg/m2 Derek Sheldon LPN [facility] Work Phone: 08-30-2018 14:16-0400 Body Temperature 98 [degF] Derek Sheldon LPN [facility] Work Phone: Comment on above: Method: Temporal 08-30-2018 14:16-0400 Body weight 86.18 kg Derek Sheldon LPN [facility] Work Phone: 08-30-2018 14:16-0400 BP Diastolic 80 mm[Hg] Derek Sheldon LPN [facility] Work Phone: Comment on above: Patient Position: Sitting; Cuff Location : Left Arm; Cuff Size: Standard 08-30-2018 14:16-0400 BP Systolic 120 mm[Hg] Derek Sheldon LPN [facility] Work Phone: Comment on above: Patient Position: Sitting; Cuff Location : Left Arm; Cuff Size: Standard 08-30-2018 14:16-0400 BSA (Body Surface Area) 2.04 m2 eDrek Sheldon LPN [facility] Work Phone: 08-30-2018 14:16-0400 Height 177.8 cm Derek Sheldon LPN [facility] Work Phone: 08-30-2018 14:16-0400 Pulse (Heart Rate) 89 /min Derek Sheldon LPN [facility] Work Phone: Comment on above: Pattern: Regular 08-30-2018 14:16-0400 Pulse Oximetry 92 % Ludy Sorenson [facility] Work Phone: Comment on above: Room air 08-30-2018 14:16-0400 Respiratory Rate 16 /min Derek Sheldon MUSHROOM PICKER [facility] Work Phone: Comment on above: Pattern: Unlabored 08-30-2018 14:16-0400 SaO2% (BldA) [Mass fraction] 92 % Derek Sheldon LPN [facility]; [facility] Work Phone: Comment on above: Room air Encounters Encounter Date Encounter Type Care Provider Facility Start: 02-22-2020 End: 02-22-2020 Annotation/Addendum Ludy Wolf Buffet Attendant al Medicine Start: 02-06-2020 End: 02-06-2020 Office outpatient visit 25 minutes Ludy Wolf [facility] Start: 08-30-2018 Patient encounter procedure Ludy Wolf [facility] Start: 08-30-2018 End: 08-30-2018 Office outpatient new 30 minutes Ludy Sorenson [facility] Procedures Date Procedure Procedure Detail Performing Clinician Bladder Cancer OPeration Charly Sheldon Comment on above: 2013,2014,2015,2016 Bladder Cancer OPeration Charly Grey Comment on above: 2013,2014,2015,2016 Hernia repair Derek Sheldon Comment on above: 2007 Hernia repair Derek Grey Comment on above: 2007 Replacement of total knee joint Derek Sheldon Comment on above: July 2017 Total knee replacement Arie Sheldon Comment on above: July 2017 Total knee replacement Arie Grey Comment on above: July 2017 Plan of Treatment Date Care Activity Detail Author Start: 02-06-2020 Assay of blood/uric acid URIC ACID BLOOD ([id number]) [facility] Work Phone: Comment on above: 02-08-20 Start: 02-06-2020 Comprehensive metabo lic panel Metabolic Panel, Comprehensive ([id number]) [facility] Work Phone: Comment on above: 02-08-20 Start: 02-06-2020 Blood count complete automated CBC & PLATELETS (AUTO) ([id number]) [facility] Work Phone: Comment on above: 02-08-20 Start: 02-06-2020 TSH Qn TSH (THYROID STIMULATING HORMONE) ([id number]) [facility] Work Phone: Comment on above: 02-08-20 Start: 02-06-2020 Lipid panel LIPID PANEL ([id number]) Com prehensive [facility] Work Phone: Comment on above: 02-08-20 Start: 02-06-2020 Procedure Education Eprescribe d prescriptions ([id number]) [facility] Work Phone: Start: 02-06-2020 Provider Instruction s for Treatment Follow up in 3 months [facility] Work Phone: Start: 08-30-2018 Provider Instruction s for Treatment [facility] Work Phone: [facility] Work Phone: [facility] Work Phone: [facility] Work Phone: Payers Date Payer Category Payer Medicare [id number] 2018 Unknown [id number] 1945 Unknown [id number] Unknown Social History Date Type Detail Facility Alcohol use: Alcohol use: [facility] Work Phone: Caffeine use Caffeine use [facility] Work Phone: Comment on above: 4-7 cups a day Drug Use: Drug Use: [facility] Work Phone: Tobacco Use: Tobacco Use: [facility] Work Phone: Comment on above: quit 2012 Alcohol use: Alcohol use: [facility]; [facility] Work Phone: Drug Use: Drug Use: [facility]; [facility] Work Phone: Tobacco Use: Tobacco Use: [facility]; [facility] Work Phone: Comment on above: quit 2012 Instructions Note Date & Type Note Facility Instructions Name How to access health information online Indication:BMI 26.0-26.9,adult Start: 0 Instruction Type:Patient Education How to access health information online - Detail Indication:BMI 26.0-26.9,adult Start: 0 Instruction Type:Patient Education Patient Instructions Indication:BMI 26.0-26.9,adult Start: 0 Instruction Type:Provider Instructions for Treatment [facility]; [facility] Work Phone: Summary Purpose Family History Unknown Family Member Name Dates Details Father Comments:diabetes Status:Active Mother Comments:hypertension Status:Active Unknown Family Member Name Dates Details Father Comments:diabetes Status:Active Mother Comments:hypertension Status:Active Unknown Family Member Name Dates Details Father Comments:diabetes Status:Active Mother Comments:hypertension Status:Active Unknown Family Member Name Dates Details Father Comments:diabetes Status:Active Mother Comments:hypertension Status:Active Unknown Family Member Name Dates Details Father Comments:diabetes Status:Active Mother Comments:hypertension Status:Active Advance Directives No Advanced Directives Records Found Instructions Name Dates Details How to access health informa tion online Indication:BMI 26.0-26.9,adult Start:06-Feb-2020 Instruction Type:Patient Education How to access health informa tion online - Detail Indication:BMI 26.0-26.9,adult Start:06-Feb-2020 Instruction Type:Patient Education Patient Instructions Indication:BMI 26.0-26.9,adult Start:06-Feb-2020 Instruction Type:Provider Instructions for Treatment Name Dates Details How to access health informa tion online Indication:BMI 26.0-26.9,adult Start:06-Feb-2020 Instruction Type:Patient Education How to access health informa tion online - Detail Indication:BMI 26.0-26.9,adult Start:06-Feb-2020 Instruction Type:Patient Education Patient Instructions Indication:BMI 26.0-26.9,adult Start:06-Feb-2020 Instruction Type:Provider Instructions for Treatment Name Dates Details How to access health informa tion online Indication:BMI 26.0-26.9,adult Start:06-Feb-2020 Instruction Type:Patient Education How to access health informa tion online - Detail Indication:BMI 26.0-26.9,adult Start:06-Feb-2020 Instruction Type:Patient Education Patient Instructions Indication:BMI 26.0-26.9,adult Start:06-Feb-2020 Instruction Type:Provider Instructions for Treatment Additional Source Comments (unrecognized sect ion and content) No Status Records Found INFORMATION SOURCE (unrecogn ized section and content) DATE CREATED AUTHOR 08/31/2018 [facility] [employer] FOR RECORDS PERTAINING TO PATIENTS WHO ARE OR HAVE BEEN ENROLLED IN A CHEMICAL DEPENDENCY/SUBSTANCEABUSE PROGRAM, SOME INFORMATION MAY BE OMITTED. This clinical summary was aggregated from multiple sources. Caution should be exercised in using it in the provision of clinical care. This summary normalizes information from multiple sources, and as a consequence, information in this document may materially change the coding, format and clinical context of patient data. In addition, data may be omitted in some cases. CLINICAL DECISIONS SHOULD BE BASED ON THE PRIMARY CLINICAL RECORDS. [employer] provides no warranty or guarantee of the accuracy or completeness of information in this document.
[2025-05-09 11:29] LABS: PSA,Total- Diagnostic 3.55 ng/mL (0.00-4.00)
== END | disposition home or self-care (01) ==
LOC: MTLAB 08:58
PROVIDERS: PCP Family Medicine; Referring Provider Urology; Visit Provider Urology
DX: C61 Malignant neoplasm of prostate (principal)
CPT/HCPCS: 36415; 84153